=== PATIENT | male | born 1995 ===

== ENCOUNTER 2017-04-30 05:21 | Emergency (ER) | payer SELFPAY ==
[2017-04-30] MEDS: PROPOFOL 200 MG INJ IV (06:01)
[2017-04-30] MEDS: HYDROmorphONE 1 MG/ML SYG IV (06:12)
[2017-04-30] MEDS: ONDANSETRON 4 MG INJ IV (06:12)
[2017-04-30] MEDS: SOD CHLORIDE 0.9% 1,000 ML IV (07:15)
[2017-04-30] MEDS ORDERED: KETOROLAC 30 MG INJ IV (07:43)
== END 2017-04-30 09:00 | disposition home or self-care (01) ==
LOC: E/R 05:21
DX: S43.015A Anterior dislocation of left humerus, initial encounter (principal); S09.8XXA Other specified injuries of head, initial encounter; S00.12XA Contusion of left eyelid and periocular area, initial encounter; S00.11XA Contusion of right eyelid and periocular area, initial encounter; R40.2142 Coma scale, eyes open, spontaneous, at arrival to emergency department; R40.2252 Coma scale, best verbal response, oriented, at arrival to emergency department; R40.2362 Coma scale, best motor response, obeys commands, at arrival to emergency department; Y04.2XXA Assault by strike against or bumped into by another person, initial encounter
CPT/HCPCS: 23650; 70450; 70486; 73030; 96374; 96375; 99291-25